=== PATIENT | female | born 1990 | race Caucasian/White ===

== ENCOUNTER 2018-02-24 19:53 | Inpatient (IN) | payer OTHER ==
[~2018-02-24] VITALS: Ht 162.6 cm; Wt 109.3 kg
[2018-02-24 20:05] VITALS: Ht 162.6 cm; Wt 109.3 kg
[2018-02-24 21:30] LABS: BASOPHIL % 0.6 % (0-2); PLATELET COUNT 398 x10^3mcL (130-400); RED CELL DISTRIBUTION WIDTH 13.8 % (11.5-14.5)
[2018-02-24 21:39] LABS: CALCIUM 9.3 mg/dL (8.5-10.1); CARBON DIOXIDE 25.8 mmol/L (21-32); CHLORIDE SERUM 104 mmol/L (98-107); CREATININE SERUM 0.8 mg/dL (0.6-1.0); GFR1 > 60 mL/min; GLUCOSE SERUM 103 mg/dL (74-106); POTASSIUM SERUM 3.9 mmol/L (3.5-5.1); SODIUM SERUM 141 mmol/L (136-145); UA SPECIFIC GRAVITY >=1.030 (1.005-1.035); microscopic required? YES; urine erythrocyte NEGATIVE (NEGATIVE)
[2018-02-24 21:45] LABS: ALBUMIN 3.7 g/dL (3.4-5.0); ALKALINE PHOSPHATASE 85 U/L (46-116); ALT/SGPT 35 U/L (14-59); AST/SGOT 13 U/L (15-37); BILIRUBIN TOTAL 0.26 mg/dL (0.20-1.00); TOTAL PROTEIN, SERUM 7.7 g/dL (6.4-8.2)
[2018-02-24 22:09] LABS: AMPHETAMINE QUAL UR NONE DETECTED (See below)
[2018-02-25] MEDS ORDERED: XANAX0.5 MG PO (06:37)
[2018-02-25] MEDS ORDERED: PROZ20 PO (06:37)
[2018-02-25 09:19] VITALS: BP 132/75
[2018-02-25 13:19] VITALS: BP 120/72
[2018-02-25 14:00] LABS: CHOLESTEROL/HDL RATIO 5.1
[2018-02-25 15:01] LABS: FREE T4 1.2 ng/dL (0.76-1.46)
[2018-02-25 15:20] LABS: T3 TOTAL 1.35 ng/mL
== END 2018-02-25 17:02 | disposition left against medical advice (07) | DRG 918 ==
LOC: ED 19:53 → DU 02-25 05:51
PROVIDERS: Emergency Medicine; Family Medicine
DX: T43.222A Poisoning by selective serotonin reuptake inhibitors, intentional self-harm, initial encounter (principal); R45.851 Suicidal ideations; Z68.41 Body mass index [BMI] 40.0-44.9, adult; F60.3 Borderline personality disorder; F43.10 Post-traumatic stress disorder, unspecified; F32.9 Major depressive disorder, single episode, unspecified; N30.90 Cystitis, unspecified without hematuria; Z53.21 Procedure and treatment not carried out due to patient leaving prior to being seen by health care provider; E66.9 Obesity, unspecified; F98.8 Other specified behavioral and emotional disorders with onset usually occurring in childhood and adolescence; F41.0 Panic disorder [episodic paroxysmal anxiety]; F41.9 Anxiety disorder, unspecified; Z91.041 Radiographic dye allergy status; Y92.89 Other specified places as the place of occurrence of the external cause; Z82.49 Family history of ischemic heart disease and other diseases of the circulatory system
CPT/HCPCS: 84439; G0480

== ENCOUNTER 2018-09-01 13:56 | Emergency (ER) | payer OTHER ==
[~2018-09-01] VITALS: Ht 162.6 cm; Wt 114.8 kg
[~2018-09-01 13:56] MED LIST: PROZ20 PO; XANAX0.5 MG PO
[2018-09-01 14:03] VITALS: BP 162/90; Ht 162.6 cm; Wt 114.8 kg
== END 2018-09-01 14:53 | disposition home or self-care (01) ==
LOC: ED 13:56
DX: S61.211A Laceration without foreign body of left index finger without damage to nail, initial encounter (principal); F41.9 Anxiety disorder, unspecified; F32.9 Major depressive disorder, single episode, unspecified; Z91.041 Radiographic dye allergy status; Z88.8 Allergy status to other drugs, medicaments and biological substances; W26.0XXA Contact with knife, initial encounter; Y93.89 Activity, other specified; Y92.89 Other specified places as the place of occurrence of the external cause; Y99.8 Other external cause status
CPT/HCPCS: 90715

== ENCOUNTER 2018-09-03 12:42 | Emergency (ER) | payer OTHER ==
[~2018-09-03] VITALS: Ht 162.6 cm; Wt 114.8 kg
[2018-09-03 12:46] VITALS: BP 178/118; Ht 162.6 cm; Wt 114.8 kg
== END 2018-09-03 12:57 | disposition left against medical advice (07) ==
LOC: ED 12:42
DX: Z53.21 Procedure and treatment not carried out due to patient leaving prior to being seen by health care provider (principal)

== ENCOUNTER 2018-09-04 13:29 | Emergency (ER) | payer OTHER | END 2018-09-04 16:19 | disposition left against medical advice (07) | LOC: ED 13:29 ==

== ENCOUNTER 2018-09-06 09:36 | Emergency (ER) | payer OTHER ==
[~2018-09-06] VITALS: Ht 162.6 cm; Wt 113.9 kg
[2018-09-06 09:40] VITALS: BP 129/90; Ht 162.6 cm; Wt 113.9 kg
== END 2018-09-06 10:18 | disposition home or self-care (01) ==
LOC: ED 09:36
DX: S60.411D Abrasion of left index finger, subsequent encounter (principal); F41.9 Anxiety disorder, unspecified; F32.9 Major depressive disorder, single episode, unspecified; Z91.041 Radiographic dye allergy status; Z88.8 Allergy status to other drugs, medicaments and biological substances; W26.0XXD Contact with knife, subsequent encounter